=== PATIENT | female | born 1980 | race Caucasian/White ===

== ENCOUNTER 2022-09-13 11:01 | Emergency (ER) | payer SELFPAY ==
[~2022-09-13] VITALS: Ht 170.2 cm; Wt 54.4 kg
[2022-09-13] MEDS ORDERED: HYDROCODONE/APAP 5MG-325MG TAB PO ONE (11:30)
[2022-09-13] MEDS ORDERED: IBUPROFEN 600 MG TAB PO STA (12:02)
[2022-09-13] MEDS ORDERED: IBUPROFEN600 MG PO (12:20)
== END 2022-09-13 12:39 | disposition home or self-care (01) ==
LOC: ER 11:07
DX: S50.12XA Contusion of left forearm, initial encounter (principal); W23.0XXA Caught, crushed, jammed, or pinched between moving objects, initial encounter; F17.200 Nicotine dependence, unspecified, uncomplicated; Z86.2 Personal history of diseases of the blood and blood-forming organs and certain disorders involving the immune mechanism
CPT/HCPCS: 99283